=== PATIENT | female | born 1935 | race Caucasian/White ===

== ENCOUNTER → 2017-08-01 14:37 | Outpatient (CLI) | payer MEDICARE, SELFPAY ==
--- NOTE | 2017-08-01 08:30 | FLU_PTH ---
PATIENT: BIBI FANG LOC: [facility] U#:[id number] AGE/SX: 89/F ROOM: RE08/01/[address]: Dr. Christian Eli MD : 1935 BED: DIS: SPEC #: [id number] RECD: 08/01/17 14:21 STATUS: RENY REBECCA #: [id number] ANNE: 08/01/17 08:[address]: Christian Eli DEPT: CYTOLOGY RECD BY: Robyn Mon ENTERED: 08/02/17 09:20 SP TYPE: Fluid OTHR DR: Dr. Elton Johnson III, MD Tissues: Urine Procedures: Pap Stain (control) Special Stain Group II Surgery Specimen Level IV Cytospin Fluid HEADER OPERATION: Not noted PRE-OP DIAGNOSIS: Hematuria TISSUE SUBMITTED: Urine for cytology DIAGNOSIS CYTOLOGY Urine for cytology (cytospin): Rare cluster of atypical urothelial cells present. AM:telly 08/03/17 COMMENT The findings are nonspecific and could represent a variety of conditions including infection, urolithiasis, instrumentation and low grade urothelial neoplasm. Clinical correlation is necessary. Case has been reviewed in consultation with Dr. Montoya who concurs with the above diagnosis. IDC:SJ CYTOLOGY STUDY Slides are reviewed. CYTOLOGY GROSS Received is 15 ml of dark yellow cloudy fluid labeled with the patient's name and and designated per the requisition as urine. Submitted for cytology preparation. / CC:cc 08/02/17 TC:? CPT: 73293
[2017-08-01 14:40] LABS: Cytology, Body Fluid / CSF SEE PATHOLOGY REPORT
== END ==
PROVIDERS: Family Provider Family Medicine; PCP Family Medicine; Visit Provider Urology
DX: R31.9 Hematuria, unspecified (principal)
CPT/HCPCS: 88108; 88305; 88313

== ENCOUNTER → 2018-01-30 17:04 | Outpatient (CLI) | payer MEDICARE, SELFPAY ==
--- NOTE | 2018-01-30 08:30 | CYSPIN_PTH ---
PATIENT: BIBI FANG LOC: [facility] U#:[id number] AGE/SX: 89/F ROOM: RE01/30/[address]: Dr. Christian Eli MD : 1935 BED: DIS: SPEC #: [id number] RECD: 01/31/18 08:15 STATUS: RENY REBECCA #: [id number] ANNE: 01/30/18 08:[address]: Christian Eli DEPT: CYTOLOGY RECD BY: Carlos Alfaro ENTERED: 01/31/18 08:16 SP TYPE: CYSPIN FL OTHR DR: Dr. Elton Johnson III, MD Tissues: Urine Procedures: Pap Stain (control) Special Stain Group II Cytospin Fluid HEADER OPERATION: Not noted PRE-OP DIAGNOSIS: D30.3 TISSUE SUBMITTED: Urine for cytology DIAGNOSIS CYTOLOGY Urine for cytology (cytospin): Negative for malignant cells. See cytology study and comment. SJ:telly 02/01/18 COMMENT Clinical correlation and appropriate follow up are necessary. Please make reference to previous specimen ([id number]) urine for cytology with diagnosis of negative for malignant cells and ([id number]) urine for cytology with diagnosis of rare cluster of atypical urothelial cells present. CYTOLOGY STUDY Slides are reviewed. The specimen consists of benign squamous cells, urothelial cells, neutrophils and red blood cells. CYTOLOGY GROSS Received is 20 ml of slightly cloudy gold fluid labeled with the patient's name and and designated per the requisition as urine. Submitted for cytology preparation. / 01/31/18 TC:5 CPT: 69706
[2018-01-30 17:43] LABS: Cytology, Body Fluid / CSF SEE PATHOLOGY REPORT
== END ==
PROVIDERS: Family Provider Family Medicine; PCP Family Medicine; Referring Provider Urology; Visit Provider Urology
DX: D30.3 Benign neoplasm of bladder (principal)
CPT/HCPCS: 88108; 88313

== ENCOUNTER → 2018-09-05 | Outpatient (CLI) | payer MEDICARE, SELFPAY ==
--- NOTE | 2018-09-05 10:30 | ASPOS_PTH ---
PATIENT: BIBI FANG LOC: [facility] U#:[id number] AGE/SX: 82/F ROOM: RE09/05/[address]: Dr. Denver Loyd DO : 1935 BED: DIS: 09/05/2018 SPEC #: [id number] RECD: 09/05/18 10:49 STATUS: RENY REQ #: [id number] ANNE: 09/05/18 10:[address]: Denver Loyd DEPT: CYTOLOGY RECD BY: Hermelindo Thomas ENTERED: 09/05/18 10:50 SP TYPE: ASP HERE OTHR DR: Dr. Elton Johnson III, MD Tissues: Parotid gland, NOS Procedures: Surgery Specimen Level IV Cytology Other Fine Needle Asp on Site HEADER OPERATION: Fine needle aspiration left parotid mass PRE-OP DIAGNOSIS: Left parotid mass TISSUE SUBMITTED: Fine needle aspiration left parotid mass, smears and fluid for cytology and cell block DIAGNOSIS CYTOLOGY Fine needle aspiration, left parotid mass (smears and cell block): Highly atypical epithelioid cells suspicious for malignant neoplasm. See comment. AM:telly 09/06/18 COMMENT The specimen is evaluated at the time of FBA by Dr. Loyd. Immediate Evaluation = Atypical epithelioid cells suspicious for neoplasm. Smears show atypical epithelioid cells with focal mucinous differentiation admixed with benign squamous cells. A malignant neoplasm such as mucoepidermoid carcinoma is a possibility. Complete excision of the lesion is recommended for definitive classification. Case has been reviewed in consultation with Dr. Fisher who concurs with the above diagnosis. IDC:CE CYTOLOGY STUDY Slides are reviewed. CYTOLOGY GROSS Received is 0.2 ml of reddish fluid labeled with the patient's name, and designated left parotid mass. Seven imprints and three paps are made from the submitted fluid and the rest is added to CytoLyt for cell block preparation. Submitted for cytology study. / AM:telly 09/05/18 TC:? CPT: 24186, 59389, 41530, 56701
== END | disposition home or self-care (01) ==
PROVIDERS: Family Provider Family Medicine; PCP Family Medicine; Referring Provider Pathology Anatomic Pathology & Clinical Pathology; Visit Provider Pathology Anatomic Pathology & Clinical Pathology
DX: R22.0 Localized swelling, mass and lump, head (principal)
CPT/HCPCS: 10021; 88161; 88305

== ENCOUNTER → 2018-09-21 | Outpatient (CLI) | payer MEDICARE, SELFPAY ==
--- NOTE | 2018-09-21 07:15 | CT_ITS ---
STUDY: CT SOFT TISSUE NECK WITH CONTRAST REASON FOR EXAM: Female, 82 years old. Left neck mass RADIATION DOSAGE (If Supplied By Facility): CTDIvol = ( 17.55 ) mGy, DLP = ( 495.08 ) mGycm TECHNIQUE: The patient was scanned in a multi-detector CT scanner. High resolution transaxial imaging was performed following intravenous administration of 75ml IV Isovue 300. Sagittal and coronal images were reconstructed. Individualized dose optimization techniques were used for this CT. COMPARISON: None. FINDINGS: The BB marker is placed over the left side parotid gland. Deep to the BB marker there is a visualized nonspecific focal soft tissue density measuring 7.4 mm just peripheral to the left side masseter muscle also with superimposed small facial pain. There is no particular abnormal enhancement of this area. The parotid glands are minimally asymmetric without evidence of visualized focal mass or inflammatory change. Also under lying the area of a BB marker is a prominent facial vein that is very tortuous. There is mixing of contrast a possible nonobstructing small thrombus within the left facial vein image #50 of the axial views. This measures approximately 1 mm and a 2.8 mm vessel. Within the right side of the anterior parotid there is a focal area of vague enhancement suggesting possible circular appearing small vessels versus a small lymph node measuring 5 mm. 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 Normal bilateral parapharyngeal spaces. Normal bilateral carotid spaces. Normal bilateral sublingual and submandibular glands and spaces. Normal visualized nasopharynx. Normal retropharyngeal space. Normal perivertebral space. Normal visualized bilateral faucial tonsils. The visualized tongue, tongue base and oropharynx are normal. There are a few nonspecific small subcentimeter lymph nodes within the neck soft tissues there is a right-sided submandibular lymph node measuring 6.2 mm and 5.0 mm on the right at the lymph node measuring 5 mm near the area of the BB marker. There is no demonstrated solid or cystic mass lesion. There is no abnormal contrast enhancement. Normal epiglottis, bilateral vallecula and hypopharynx. The pre-epiglottic and paraglottic adipose spaces are normal. Normal visualized bilateral piriform sinuses, aryepiglottic folds, vocal cords, and arytenoid-cricoid articulations. Normal subglottic trachea. The thyroid or 1.4 x 0.95 cm nodule partially extends down to the left side of the mediastinum but remains within normal limits in size. Normal visualized pulmonary apices. Normal visualized paranasal sinuses. There is degenerative change in the cervical spine. Most significant at the level of C5-C6 C6-C7. There is disc space narrowing moderate right neural foraminal narrowing at C5-C6. At C6-C7 there is disc space narrowing mild neural foramina narrowing bilaterally. The visualized brain parenchyma shows atrophy. There is calcification of the records and left carotid arteries. CT/Soft Tissue Neck WITH Contrast IMPRESSION: A BB marker was placed in the region of interest as indicated by the patient. Underlying this area is a minimally asymmetric but normal appearing parotid gland. There may be a small lymph node superficial to the left side masseter muscle that measures 7 mm. There is also a tortuous facial vein underlying this area as well is not likely to be palpable. There is however incidental focal filling defect within the proximal aspect of this vein which may represent a 1 mm small focus of artifact versus mixing of contrast potentially a tiny nonobstructing superficial venous thrombosis. There is a lobulated appearance of the fairly normal size appearing left thyroid extending to the left of midline within the mediastinum. There is degenerative change in the cervical spine. Electronically Signed: Eileen Betancourt MD at 10:37 EDT Tel , Service support ,
[2018-09-21 07:36] LABS: CREATININE FINGERSTICK 1.4 mg/dL (0.55-1.02)
== END | disposition home or self-care (01) ==
PROVIDERS: Family Provider Family Medicine; PCP Family Medicine; Referring Provider Otolaryngology Otolaryngology/Facial Plastic Surgery; Visit Provider Otolaryngology Otolaryngology/Facial Plastic Surgery
DX: R22.1 Localized swelling, mass and lump, neck (principal)
CPT/HCPCS: 70491; Q9967

== ENCOUNTER → 2023-11-27 | Outpatient (CLI) | payer MEDICARE, SELFPAY ==
--- NOTE | 2023-11-27 13:45 | ECHOD_ITS ---
Reason For Study: HYPERTENSION Procedure This was a 2D Doppler, Color Flow transthoracic echocardiogram. Exam performed in department. Left Ventricle Normal size and thickness. Left ventricular systolic function is normal. The left ventricular ejection fraction is 65 %. No regional wall motion abnormalities noted. Right Ventricle Normal RV size. Normal systolic function. Atria Normal left atrium. Normal right atrium. Mitral Valve Normal mitral valve. Mild (1+) eccentric mitral valve insufficiency. Tricuspid Valve Normal tricuspid valve. Mild (1+) tricuspid valve insufficiency. Pulmonary artery systolic pressure is 36 mmHg. Aortic Valve Trisinus/trileaflet aortic valve. Mild (1+) aortic valve insufficiency. Pulmonic Valve Normal pulmonic valve. Great Vessels Normal aortic root. The pulmonary artery is normal size. Normal inferior vena cava. Pericardium/Pleural No pericardial effusion. MMode/2D Measurements & Calculations LVIDd: 4.1 cm IVSd: 0.97 cm Ao root diam: 2.9 cm LVIDs: 2.8 cm LVPWd: 0.89 cm RVDd: 2.9 cm FS: 31.3 % LAV(MOD-bp): 29.8 ml LVAd ap4: 25.4 cm2 SV(MOD-sp4): 46.0 ml LAV(MOD-bp) Indexed: 18.2 ml/m2 LVLd ap4: 7.2 cm LAV(MOD-sp2): 31.7 ml EDV(MOD-sp4): 72.9 ml LAV(MOD-sp4): 26.5 ml EDV(sp4-el): 75.5 ml LVAs ap4: 13.9 cm2 LVLs ap4: 6.3 cm ESV(MOD-sp4): 26.8 ml ESV(sp4-el): 26.2 ml EF(MOD-sp4): 63.2 % EF(sp4-el): 65.3 % SV(sp4-el): 49.3 ml LA A4 area: 11.9 cm2 LA dimension(2D): 3.1 cm RA A4 area: 9.5 cm2 TAPSE: 1.9 cm Time Measurements MV dec time: 0.19 sec Doppler Measurements & Calculations MV E max toño: 65.6 cm/sec Lat Peak E' Toño: 8.6 cm/sec Med Peak E' Toño: 8.5 cm/sec MV A max toño: 63.2 cm/sec E/E' lat: 7.6 E/E' med: 7.7 MV E/A: 1.0 Ao V2 max: 125.6 cm/sec AI max toño: 307.8 cm/sec LV V1 max: 89.4 cm/sec Ao max P.3 mmHg AI max P.9 mmHg LV V1 max P.2 mmHg AI dec slope: 171.8 cm/sec2 AI P1/2t: 524.9 msec PA V2 max: 118.1 cm/sec TR max toño: 285.2 cm/sec TR max P.5 mmHg ECHO/Echo Complete Interpretation Summary Normal size and thickness. Left ventricular systolic function is normal. The left ventricular ejection fraction is 65 %. Mild (1+) aortic valve insufficiency. Mild (1+) eccentric mitral valve insufficiency. Ordering Physician: Ranjith Crawley Referring Physician: CLIVE SANTANA Performed By: Kip Quiros, RVT
== END | disposition home or self-care (01) ==
LOC: CVS 13:42
PROVIDERS: PCP Physician Assistant; Referring Provider Internal Medicine Cardiovascular Disease; Visit Provider Internal Medicine Cardiovascular Disease
DX: R94.31 Abnormal electrocardiogram [ECG] [EKG] (principal); I10 Essential (primary) hypertension
CPT/HCPCS: 93306